=== PATIENT | female | born 1975 | race Caucasian/White ===

== ENCOUNTER 2019-03-24 13:35 | Emergency (ER) | payer BC ==
[~2019-03-24 13:35] MED LIST: ISOVUE-370 76%-LOCM 1 ML ONE
[2019-03-24 14:01] LABS: Bilirubin Negative (Negative); Blood, Urine Trace (Negative); Clarity CLEAR (Clear); Glucose, Urine (Dipstick) Negative (Negative); Leukocyte Negative (Negative); Nitrite Negative (Negative); Protein, Urine (Dipstick) Negative (Neg-Trace); Specific Gravity, Urine 1.011 (1.002-1.036); Urobilinogen 0.2 mg/dL (0.2-1.0)
[2019-03-24 14:03] LABS: Bacteria/HPF None Seen HPF (None Seen); Hyaline Casts/LPF 0-3 HYALINE CAST LPF (0-3 Hyaline); Squamous Epithelial None Seen HPF (0-3); WBC/HPF 0-3 HPF (0-3)
[2019-03-24 14:16] LABS: #Basophils 0.1 thou/uL (0.0-0.2); #Eosinphils 0.1 thou/uL (0.0-0.7); #Lymphocytes 2.5 thou/uL (1.20-3.40); #Monocytes 0.7 thou/uL (0.11-0.59); #Neutrophils 7.1 thou/uL (1.40-6.50); %Basophils 0.9 % (0.0-1.0); %Eosinophils 0.9 % (0.0-10.0); %Lymphocytes 23.8 % (21.0-51.0); %Monocytes 6.6 % (0.0-10.0); %Neutrophils 67.8 % (42.0-75.0); Hemoglobin 14.3 g/dL (12.0-16.0); Mean Corpuscular HGB CONC 32.4 g/dL (32.0-36.0); Mean Corpuscular Volume 89.6 fL (78.0-98.0); Mean Platelet Volume 7.8 fL (7.4-10.4); Platelet Count 351 thou/uL (130-400); RBC Distribution Width 11.4 % (11.5-14.5); Red Blood Cell (RBC) Count 4.91 mill/uL (4.20-5.40); White Blood Cell (WBC) Count 10.4 thou/uL (4.8-10.8)
[2019-03-24 14:39] LABS: ALT (SGPT) 12 U/L (8-55); AST (SGOT) 15 U/L (5-34); Albumin 4.6 g/dL (3.5-5.0); Alkaline Phosphatase 53 U/L (40-150); Anion Gap 13 mmol/L (10-20); BUN (Urea Nitrogen) 11 mg/dL (7.0-18.7); Bilirubin, Total 0.7 mg/dL (0.2-1.2); Calc. Creatinine Clearance 0 mL/min (70-130); Calcium 9.7 mg/dL (7.8-10.44); Carbon Dioxide 25 mmol/L (22-29); Chloride 104 mmol/L (98-107); Estimated GFR-MDRD 81; Glucose 94 mg/dL (70-105); Lipase 24 U/L (8-78); Potassium 4.1 mmol/L (3.5-5.1); Protein, Total 7.6 g/dL (6.0-8.3); Sodium 138 mmol/L (136-145)
[2019-03-24] MEDS ORDERED: Aspirin 325 MG TAB ONE (16:07)
[2019-03-24] MEDS ORDERED: Aspirin Chewable 81 MG TAB ONE ×2 (16:07→16:08)
[2019-03-24 16:20] LABS: Pregnancy Test - Urine (BHCG) Negative (Negative); Pregu Control Background? CLEAR/WHITE (CLR/WHITE); Pregu Control Bar Appear? YES (CONTROL BAR); Specific Gravity 1.011 (1.002-1.036)
[2019-03-24 16:39] LABS: Magnesium 2.2 mg/dL (1.6-2.6)
--- NOTE | 2019-03-24 16:45 | CT ---
CT BRAIN WITHOUT CONTRAST: HISTORY: General malaise. Left-sided facial pain and tingling FINDINGS: No evidence of acute infarct, hemorrhage, midline shift or abnormal extra-axial fluid collections is seen. The ventricular size is appropriate and the basilar cisterns are patent. The bony calvarium is intact. The visualized paranasal sinuses and mastoid air cells are well aerated. IMPRESSION: No CT evidence of acute intracranial process.
--- NOTE | 2019-03-24 16:56 | CT ---
CT ABDOMEN AND PELVIS WITH IV CONTRAST: HISTORY: Abdominal pain COMPARISON: 07/19/2014 FINDINGS: The lung bases are clear. The 2 x 3 cm mass in the right lobe of the liver is again seen with periphe ral nodular enhancement, likely hemangioma. No calcified gallstones are identified. A small cyst in the right kidney is again seen. The spleen, pancreas, adrenal glands and left kidney are normal. No free air, free fluid or lymphadenopathy seen in the abdomen or pelvis. A normal-appearing appendix is present. Uterus and ovaries are present. There is fecal material in the colon and rectum. No acute osseous abnormalities are seen. IMPRESSION: 1. No evidence of acute process. 2. Probable liver hemangioma. Confirmation with technetium 99m labeled IVC scan is recommended.
--- NOTE | 2019-03-27 02:24 | EKG ---
Test Reason : Blood Pressure : / mmHG Vent. Rate : 078 BPM Atrial Rate : 078 BPM P-R Int : 102 ms QRS Dur : 078 ms QT Int : 372 ms P-R-T Axes : 057 067 065 degrees QTc Int : 424 ms Sinus rhythm with short MN Otherwise normal ECG Confirmed by KIERA ALEJANDRO MD ([id number]), newspaper managing editor BETTYE VANG ([id number] on 03/27/2019 2:23:48 AM Referred By: Confirmed By:KIERA ALEJANDRO MD
== END 2019-03-24 18:29 | disposition home or self-care (01) ==
LOC: ERS 13:35
DX: R20.2 Paresthesia of skin (principal); R10.9 Unspecified abdominal pain
CPT/HCPCS: 36415; 70450; 74177; 80053; 81003; 81015; 81025; 82550; 83605; 83690; 83735; 84443; 84484; 85025; 86140; 87086; 93005; 94760; Q9966